=== PATIENT | female | born 1970 | race Caucasian/White ===

== ENCOUNTER 2019-10-18 16:29 | Inpatient (IN) | payer OTHER, MEDICAID, SELFPAY ==
[2019-10-18 16:29] VITALS: BP 120/74; PULSE 92; TEMP 36.5; O2SAT 95; BMI 19.3
--- NOTE | 2019-10-18 16:41 | PC.NURSE ---
EMS reports the condition of the home the patient was living was unlivable and that he would be calling DFS due to a child living in the home.
--- NOTE | 2019-10-18 17:42 | XR_ITS ---
WS: [id number] XR chest 1V portable [id number] REASON FOR EXAM: cough/congestion FINDINGS: Comparisons were made to previous exam exposed July 14, 2019. Cardiomegaly is again see n. There is an infiltrate with air bronchograms in the right lower lung. The lungs are hyper aerated as compared to earlier exam. The hilum and apices are normal. In the left lingula segment there is an alveolar infiltrate there is increased since earlier exam. XR/XR chest 1V portable [id number] IMPRESSION: Right lower lung interstitial pneumonia Hyper aerated lungs Alveolar infiltrate in the lingula segment.
[2019-10-18 17:59] VITALS: PULSE 99; RESP 18; O2SAT 94
[2019-10-18] MEDS: ipratropium-albuterol 3 mL Neb INHALATION (17:59)
[2019-10-18 18:06] VITALS: PULSE 101
[2019-10-18 18:19] LABS: Basophils # 0.1 10^3/uL (0.0-0.1); Basophils % 0.3 %; Eosinophils # 0.2 10^3/uL (0.0-0.8); Eosinophils % 1.3 %; Hematocrit 30.9 % (37.0-47.0); Hemoglobin 10.6 g/dL (11.5-15.3); Lymphocytes # 0.2 10^3/uL (0.8-4.8); Mean Corpuscular HGB Conc 34.3 g/dL (30.0-36.0); Mean Corpuscular Hemoglobin 28.3 pg (28.0-34.0); Mean Corpuscular Volume 82.6 fL (81-99); Monocytes # 0.8 10^3/uL (0.2-0.9); Monocytes % 4.3 %; Neutrophils # 16.5 10^3/uL (1.8-7.7); Nucleated Red Blood Cells % 0 %; Platelet Count 244 10^3/cmm (130-400); Red Blood Count 3.74 10^6/uL (4.1-5.3); Red Cell Distribution Width 14.6 % (12.1-15.1); White Blood Count 19.1 10^3/uL (4.0-10.0)
--- NOTE | 2019-10-18 18:28 | ED_ITS ---
HPI - General Adult General: Chief complaint: Skin/Abscess/Foreign Body Stated complaint: R BUTTOCK PAIN/WOUND Time Seen by Provider: 10/18/19 17:22 Source: family Mode of arrival: EMS Limitations: language barrier and altered mental status History of Present Illness: HPI narrative: Patient is a 48-year-old female who is currently on hospice for ESRD and lung cancer/COPD here after being brought by EMS for complaints of difficulty breathing and painful chronic buttock ulcers. Upon my examination patient does not have any family with her. There is a hospice nurse that answers as many questions as she can. Patient herself is an extremely poor historian. Hospice nurse tells me that patient has refused all of her home health care visits this week. She tells me patient does have a history of decubitus ulcers however feels these are worsening. She tells me that patient is normally on 2L O2. Hospice nurse is not sure who called an ambulance. Later during patient's visit, one of her family members arrives who states he is patient's DPOA. He states patient is a DNR. After speaking to him extensively about patient's hospice care he does want to go ahead and treat patient today. Onset (ago): unknown Location: buttocks Review of Systems General: Reports: ROS unobtainable due to mental status and other (pt is a poor historian but family states she is at her mental baseline) PENDING SALE TO [facility] ED PFSH: Medical History (Updated 10/18/19 @ 22:30 by Bernabe Amaro MD) Bedbug bite Congestive heart failure COPD (chronic obstructive pulmonary disease) End stage renal disease Hospice care Lung cancer MRSA carrier Open wound Pseudoaneurysm of right femoral artery Pulmonary emboli Sacral decubitus ulcer, stage III Smoker Type 2 diabetes mellitus Surgical History (Updated 10/18/19 @ 22:30 by Bernabe Amaro MD) H/O cardiac catheterization S/P debridement Family History (Updated 10/18/19 @ 22:50 by Bernabe Amaro MD) Denies family history of Clotting disorder Dementia Chronic kidney disease (CKD) Social History Smoking and tobacco status: current every day smoker Physical Exam Const: COMMON NORMALS: oriented x3 and alert GENERAL APPEARANCE: frail appearing NUTRITIONAL APPEARANCE: cachectic and thin ORIENTATION/CONSCIOUSNESS: Yes awake, Yes oriented to person and Yes oriented to place HENMT: COMMON NORMALS: normocephalic and head/scalp atraumatic HEAD & SCALP: normocephalic and atraumatic Resp: EFFORT & INSPECTION: Yes uses accessory muscles AUSCULTATION: wheezes scattered wheezes Cardio: COMMON NORMALS: regular rate and regular rhythm RATE: regular rate RHYTHM: regular rhythm GI: COMMON NORMALS: soft to palpation and non-tender PALPATION: Yes soft OTHER: macerated skin to lower abdomen-hospice doesn't seem to know if that is acute or chronic Extremity: COMMON NORMALS: normal to inspection Neuro: COMMON NORMALS: oriented x3 SENSORIUM/ORIENTATION: Yes alert, Yes oriented to person and Yes oriented to place Skin: OTHER: pt has two small very superficial ulcers to R buttock/sacrum; she has a large ulcer/abscess and hemorrhoid to rectum area with foul odor; pt has erythema and edema to genitals/labia Course Consultations: Consultation #1: Dr. Amaro-will admit patient Vital Signs: Vital signs: Vital Signs Temperature 97.7 F 10/18/19 16:29 Pulse Rate 103 H 10/18/19 19:27 Respiratory Rate 19 H 10/18/19 21:05 Blood Pressure 120/74 10/18/19 19:27 Pulse Oximetry 100 10/18/19 21:05 MDM - General Adult MDM Narrative: Medical decision making narrative: pts care/lab results were discussed with Dr. Vick throughout her stay; family wanting treatment for patient currently even though she is on hospice; spoke to hospitalist who will admit the patient Lab Data: Labs: Lab Results 10/18/19 10/18/19 10/18/19 Range/Units 18:12 18:12 18:12 WBC 19.1 H (4.0-10.0) 10^3/ uL RBC 3.74 L (4.1-5.3) 10^6/u L Hgb 10.6 L (11.5-15.3) g/dL Hct 30.9 L (37.0-47.0) % MCV 82.6 (81-99) fL MCH 28.3 (28.0-34.0) pg MCHC 34.3 (30.0-36.0) g/dL RDW 14.6 (12.1-15.1) % Plt Count 244 (130-400) 10^3/c mm MPV 10.0 (7.4-10.4) fL Neut % (Auto) 86.0 % Lymph % (Auto) 1.0 % [place] % (Auto) 4.3 % Eos % (Auto) 1.3 % Baso % (Auto) 0.3 % Neut # (Auto) 16.5 H (1.8-7.7) 10^3/u L Lymph # (Auto) 0.2 L (0.8-4.8) 10^3/u L [place] # (Auto) 0.8 (0.2-0.9) 10^3/u L Eos # (Auto) 0.2 (0.0-0.8) 10^3/u L Baso # (Auto) 0.1 (0.0-0.1) 10^3/u L Nucleated RBC % (a uto) 0 % Total Counted 100 (0-100) Segmented Neutroph ils 80 % Band Neutrophils 15.0 % Lymphocytes (Manua l) 3 % Monocytes (Manual) 2.0 % Absolute Monocytes 0.4 (0.1-0.6) 10^3/c mm Nucleated RBCs # 0.0 /100WBC Toxic Granulation 2+ H Toxic Vacuolation 1+ H Platelet Estimate Normal (Normal) Anisocytosis 1+ H Specimen Type Sample Site ABG pH (7.35-7.45) ABG pCO2 (35-45) mmHg ABG pO2 (80.0-100.0) mmH g ABG HCO3 (22-26) mmol/L ABG O2 Saturation ABG Base Excess (-2.0-2.0) mmol/ L Real Test A-a O2 Gradient (5-10) mmHg Hematocrit (37-47) % Hgb O2 Saturation (95-100) % Carboxyhemoglobin (0.4-20.1) %THgb Methemoglobin (0.4-1.5) % Total Hemoglobin (12-16) g/dL Ionized Calcium (1.1-1.4) mmol/L O2 Delivery Device O2 Liters/Min % Ruling Machine Feeder ID Sodium 114 L* (136-145) mmol/L Potassium 4.0 (3.5-5.1) mmol/L Chloride 73 L (98-107) mmol/L Carbon Dioxide 29 (22-29) mmol/L Anion Gap 16.0 (5-19) BUN 45 H (6-20) mg/dL Creatinine 1.6 H (0.5-0.9) mg/dL GFR Calculation 34.1 L (90-130) mL/min Glucose 122 H (65-115) mg/dL Lactate 1.8 (0.5-2.2) mmol/L Calcium 8.7 (8.5-10.5) mg/dL Magnesium (1.7-2.3) mg/dL Total Bilirubin 0.8 (0.15-1.2) mg/dL AST 45 H (0-32) U/L ALT 26 (0-33) U/L Alkaline Phosphata se 372 H (35-105) IU/L Troponin T Baselin e (0-10) ng/mL Troponin T 120 Min [place] (0-10) ng/mL Delta Troponin T (0-10) ABS# Total Protein 5.4 L (6.6-8.7) g/dL Albumin 2.0 L (3.5-5.2) g/dL Globulin 3.4 (1.3-4.6) g/dL Urine Color (Yellow) Urine Appearance (CLEAR) Urine pH (5-7) Ur Specific Gravit y (1.005-1.030) Urine Protein (Negative) Urine Glucose (UA) (Normal) Urine Ketones (Negative) Urine Blood (Negative) Urine Nitrate (Negative) Urine Bilirubin (NEGATIVE) Urine Urobilinogen (Negative) mg/dL Ur Leukocyte Angela ase (Negative) Urine RBC (0-2) /hpf Urine WBC (0-5) /hpf Ur Squamous Epith Cells (0-5) Amorphous Sediment Urine Bacteria (NONE) Influenza Type A A g (Negative) POC Influenza B Ag (Negative) 10/18/19 10/18/19 10/18/19 Range/Units 18:12 18:12 19:50 WBC (4.0-10.0) 10^3/ uL RBC (4.1-5.3) 10^6/u L Hgb (11.5-15.3) g/dL Hct (37.0-47.0) % MCV (81-99) fL MCH (28.0-34.0) pg MCHC (30.0-36.0) g/dL RDW (12.1-15.1) % Plt Count (130-400) 10^3/c mm MPV (7.4-10.4) fL Neut % (Auto) % Lymph % (Auto) % [place] % (Auto) % Eos % (Auto) % Baso % (Auto) % Neut # (Auto) (1.8-7.7) 10^3/u L Lymph # (Auto) (0.8-4.8) 10^3/u L [place] # (Auto) (0.2-0.9) 10^3/u L Eos # (Auto) (0.0-0.8) 10^3/u L Baso # (Auto) (0.0-0.1) 10^3/u L Nucleated RBC % (a uto) % Total Counted (0-100) Segmented Neutroph ils % Band Neutrophils % Lymphocytes (Manua l) % Monocytes (Manual) % Absolute Monocytes (0.1-0.6) 10^3/c mm Nucleated RBCs # /100WBC Toxic Granulation Toxic Vacuolation Platelet Estimate (Normal) Anisocytosis Specimen Type Sample Site ABG pH (7.35-7.45) ABG pCO2 (35-45) mmHg ABG pO2 (80.0-100.0) mmH g ABG HCO3 (22-26) mmol/L ABG O2 Saturation ABG Base Excess (-2.0-2.0) mmol/ L Real Test A-a O2 Gradient (5-10) mmHg Hematocrit (37-47) % Hgb O2 Saturation (95-100) % Carboxyhemoglobin (0.4-20.1) %THgb Methemoglobin (0.4-1.5) % Total Hemoglobin (12-16) g/dL Ionized Calcium (1.1-1.4) mmol/L O2 Delivery Device O2 Liters/Min % Ruling Machine Feeder ID Sodium (136-145) mmol/L Potassium (3.5-5.1) mmol/L Chloride (98-107) mmol/L Carbon Dioxide (22-29) mmol/L Anion Gap (5-19) BUN (6-20) mg/dL Creatinine (0.5-0.9) mg/dL GFR Calculation (90-130) mL/min Glucose (65-115) mg/dL Lactate (0.5-2.2) mmol/L Calcium (8.5-10.5) mg/dL Magnesium 1.6 L (1.7-2.3) mg/dL Total Bilirubin (0.15-1.2) mg/dL AST (0-32) U/L ALT (0-33) U/L Alkaline Phosphata se (35-105) IU/L Troponin T Nael e 2184 H* (0-10) ng/mL Troponin T 120 Min [place] (0-10) ng/mL Delta Troponin T (0-10) ABS# Total Protein (6.6-8.7) g/dL Albumin (3.5-5.2) g/dL Globulin (1.3-4.6) g/dL Urine Color (Yellow) Urine Appearance (CLEAR) Urine pH (5-7) Ur Specific Gravit y (1.005-1.030) Urine Protein (Negative) Urine Glucose (UA) (Normal) Urine Ketones (Negative) Urine Blood (Negative) Urine Nitrate (Negative) Urine Bilirubin (NEGATIVE) Urine Urobilinogen (Negative) mg/dL Ur Leukocyte Angela ase (Negative) Urine RBC (0-2) /hpf Urine WBC (0-5) /hpf Ur Squamous Epith Cells (0-5) Amorphous Sediment Urine Bacteria (NONE) Influenza Type A A g Negative (Negative) POC Influenza B Ag Negative (Negative) 10/18/19 10/18/19 10/18/19 Range/Units 20:12 21:32 23:02 WBC (4.0-10.0) 10^3/ uL RBC (4.1-5.3) 10^6/u L Hgb (11.5-15.3) g/dL Hct (37.0-47.0) % MCV (81-99) fL MCH (28.0-34.0) pg MCHC (30.0-36.0) g/dL RDW (12.1-15.1) % Plt Count (130-400) 10^3/c mm MPV (7.4-10.4) fL Neut % (Auto) % Lymph % (Auto) % [place] % (Auto) % Eos % (Auto) % Baso % (Auto) % Neut # (Auto) (1.8-7.7) 10^3/u L Lymph # (Auto) (0.8-4.8) 10^3/u L [place] # (Auto) (0.2-0.9) 10^3/u L Eos # (Auto) (0.0-0.8) 10^3/u L Baso # (Auto) (0.0-0.1) 10^3/u L Nucleated RBC % (a uto) % Total Counted (0-100) Segmented Neutroph ils % Band Neutrophils % Lymphocytes (Manua l) % Monocytes (Manual) % Absolute Monocytes (0.1-0.6) 10^3/c mm Nucleated RBCs # /100WBC Toxic Granulation Toxic Vacuolation Platelet Estimate (Normal) Anisocytosis Specimen Type Arterial Sample Site Brachial, left ABG pH 7.46 H (7.35-7.45) ABG pCO2 46.0 H (35-45) mmHg ABG pO2 66.0 L (80.0-100.0) mmH g ABG HCO3 32.6 H (22-26) mmol/L ABG O2 Saturation 96.1 ABG Base Excess 7.8 H (-2.0-2.0) mmol/ L Real Test Pos A-a O2 Gradient 26.5 H (5-10) mmHg Hematocrit 34.0 L (37-47) % Hgb O2 Saturation 93.9 L (95-100) % Carboxyhemoglobin 2.1 (0.4-20.1) %THgb Methemoglobin 0.1 L (0.4-1.5) % Total Hemoglobin 11.1 L (12-16) g/dL Ionized Calcium 1.1 (1.1-1.4) mmol/L O2 Delivery Device Nc O2 Liters/Min 2.0 % Ruling Machine Feeder ID [email or web address] Sodium 114.0 L (136-145) mmol/L Potassium 3.5 (3.5-5.1) mmol/L Chloride (98-107) mmol/L Carbon Dioxide (22-29) mmol/L Anion Gap (5-19) BUN (6-20) mg/dL Creatinine (0.5-0.9) mg/dL GFR Calculation (90-130) mL/min Glucose 108.0 (65-115) mg/dL Lactate (0.5-2.2) mmol/L Calcium (8.5-10.5) mg/dL Magnesium (1.7-2.3) mg/dL Total Bilirubin (0.15-1.2) mg/dL AST (0-32) U/L ALT (0-33) U/L Alkaline Phosphata se (35-105) IU/L Troponin T Baselin e (0-10) ng/mL Troponin T 120 Min [place] 2258 H (0-10) ng/mL Delta Troponin T 74 H* (0-10) ABS# Total Protein (6.6-8.7) g/dL Albumin (3.5-5.2) g/dL Globulin (1.3-4.6) g/dL Urine Color Yellow (Yellow) Urine Appearance Sl hazy (CLEAR) Urine pH 5 (5-7) Ur Specific Gravit y 1.015 (1.005-1.030) Urine Protein 3+ H (Negative) Urine Glucose (UA) 1+ (Normal) Urine Ketones Negative (Negative) Urine Blood 2+ H (Negative) Urine Nitrate Negative (Negative) Urine Bilirubin Neg (NEGATIVE) Urine Urobilinogen Norm (Negative) mg/dL Ur Leukocyte Angela ase Negative (Negative) Urine RBC 0-4 H (0-2) /hpf Urine WBC None (0-5) /hpf Ur Squamous Epith Cells 5-10 H (0-5) Amorphous Sediment 2+ Urine Bacteria 1+ H (NONE) Influenza Type A A g (Negative) POC Influenza B Ag (Negative) Imaging Data^: CT Abd/Pel: Radiologist's impression: [place] [address] CT Scan Report Signed Patient: Brielle Love Unit #: [id number] : 1970 Age/Sex: 48 / F ADM Date: 10/18/19 Loc: ER Room/Bed: Attending Dr: Ordering Provider/Ordering MD: Rosalinda Flores Date of Service: 10/18/19 Procedure(s): CT kidney stone 31851 Accession Number(s): [id number] Report Number: [id number] PROCEDURE INFORMATION: Exam: CT Abdomen And Pelvis Without Contrast Exam date and time: 10/18/2019 8:05 PM Age: 48 years old Clinical indication: Other: Decub/rectal ulcer, swollen/erythematous genitals; Additional info: Decub/rectal ulcer; Swollen/erythematous genitals TECHNIQUE: Imaging protocol: Computed tomography of the abdomen and pelvis without contrast. Total DLP: 1353.21 mGy-cm Radiation optimization: All CT scans at this facility use at least one of these dose optimization techniques: automated exposure control; mA and/or kV adjustment per patient size (includes targeted exams where dose is matched to clinical indication); or iterative reconstruction. COMPARISON: No relevant prior studies available. FINDINGS: Pleural space: Bilateral small pleural effusions. Cardiomegaly. Coronary artery disease. Small pericardial effusion. Liver: Liver grossly unremarkable. Gallbladder and bile ducts: Unremarkable. No visible calcified stones. No visible ductal dilation. Pancreas: Pancreas grossly unremarkable. No visible pancreatic ductal ectasia. Spleen: Spleen with calcified granuloma. No splenomegaly. Adrenals: No visible adrenal mass or nodule. Kidneys and ureters: Kidneys unremarkable. No hydronephrosis or perinephric fluid. Renal arterial sclerosis. Stomach and bowel: Limited assessment of bowel reveals nonobstructive bowel pattern. Appendix: No evidence of appendicitis. Intraperitoneal space: Small volume intraperitoneal ascites. No visible pneumoperitoneum. Vasculature: The abdominal aorta appears nonaneurysmal. Moderate arterial sclerotic disease. Lymph nodes: Unremarkable. No enlarged lymph nodes. Bladder: Distended urinary bladder. Bladder measures 13.3 cm x 9.7 cm by 10.7 cm. Reproductive: Unremarkable as visualized. Bones/joints: No visible osteolytic or osteoblastic destructive process within the field of view. Old right rib fractures. Bilateral spondylolysis L5/S1 without significant spondylolisthesis. Degenerative disease. Soft tissues: Diffuse marked anasarca. Cachexia. Within the field of view no definite visible evidence of seroma, hematoma, or organized abscess. Please note that without intravenous contrast detail assessment is limited. Perianal loculated fluid collection with emphysema consistent with an abscess. Dimensions are approximately 6.8 cm by 3.6 cm by 4.7 cm. Second potential anterior perineal abscess dimensions estimated [address]/CT kidney stone [id number] IMPRESSION: 1. Perianal loculated fluid collection with emphysema consistent with an abscess. Dimensions are approximately 6.8 cm by 3.6 cm by 4.7 cm. Second potential anterior perineal abscess dimensions estimated 20 mm in diameter. 2. Bilateral small pleural effusions. 3. Small pericardial effusion. 4. Small volume intraperitoneal ascites. 5. Diffuse marked anasarca. Cachexia. 6. Distended urinary bladder. 7. Other non emergent, non urgent, chronic, and age related findings discussed in text. Radiation Dose CTDIVOL = (mGy): DLP = 1353.21 (mGy-cm) Dictated By: Humphrey Haney Signed By: Humphrey Haney Signed Date/Time: 10/18/192153 DD/ 51 Discharge Plan Discharge Patient Disposition: Admitted As Inpatient Admit Provider: Bernabe Amaro Clinical Impression: Abscess, perianal, Acute non-ST elevation myocardial infarction (NSTEMI), End stage renal disease, Lung cancer, Acute hyponatremia Condition: Stable Referrals: Robert Watson DO [Family Provider] - Bj Rios DO [Primary Care Provider] - Coding Level of Care Code ED Bench Examiner for Chg Fwd Exam Detailed
[2019-10-18 18:34] LABS: Alanine Aminotransferase 26 U/L (0-33); Alkaline Phosphatase 372 IU/L (35-105); Aspartate Amino Transferase 45 U/L (0-32); Blood Urea Nitrogen 45 mg/dL (6-20); Calcium 8.7 mg/dL (8.5-10.5); Carbon Dioxide 29 mmol/L (22-29); Chloride 73 mmol/L (98-107); Globulin 3.4 g/dL (1.3-4.6); Glomerular Filtration Rate 34.1 mL/min (90-130); Glucose 122 mg/dL (65-115); Total Bilirubin 0.8 mg/dL (0.15-1.2); Total Protein 5.4 g/dL (6.6-8.7)
[2019-10-18 18:35] LABS: Lactate (Lactic Acid level) 1.8 mmol/L (0.5-2.2)
--- NOTE | 2019-10-18 18:46 | PC.PHAR ---
UNABLE TO GET ANY MEDICATION INFORMATION FROM THE PATIENT.
[2019-10-18 18:47] LABS: Platelet Estimate Normal (Normal); Total Cells Counted 100 (0-100); Toxic Granulation 2+
[2019-10-18 18:48] LABS: Toxic Vacuolation 1+
[2019-10-18 18:50] LABS: Absolute Segmented Neutrophil 15.2 10/cmm (1.6-7.1); Band Neutrophils Absolute 2.9 10^3/cmm (0.0-1.2); Lymphocytes 3 %; Monocytes Absolute 0.4 10^3/cmm (0.1-0.6); Segmented Neutrophils 80 %
[2019-10-18 18:51] LABS: Anisocytosis 1+
[2019-10-18 18:54] LABS: Sodium 114 mmol/L (136-145)
--- NOTE | 2019-10-18 19:26 | CTR_ITS ---
PROCEDURE INFORMATION: Exam: CT Abdomen And Pelvis Without Contrast Exam date and time: 10/18/2019 8:05 PM Age: 48 years old Clinical indication: Other: Decub/rectal ulcer, swollen/erythematous genitals; Additional info: Decub/rectal ulcer; Swollen/erythematous genitals TECHNIQUE: Imaging protocol: Computed tomography of the abdomen and pelvis without contrast. Total DLP: 1353.21 mGy-cm Radiation optimization: All CT scans at this facility use at least one of these dose optimization techniques: automated exposure control; mA and/or kV adjustment per patient size (includes targeted exams where dose is matched to clinical indication); or iterative reconstruction. COMPARISON: No relevant prior studies available. FINDINGS: Pleural space: Bilateral small pleural effusions. Cardiomegaly. Coronary artery disease. Small pericardial effusion. Liver: Liver grossly unremarkable. Gallbladder and bile ducts: Unremarkable. No visible calcified stones. No visible ductal dilation. Pancreas: Pancreas grossly unremarkable. No visible pancreatic ductal ectasia. Spleen: Spleen with calcified granuloma. No splenomegaly. Adrenals: No visible adrenal mass or nodule. Kidneys and ureters: Kidneys unremarkable. No hydronephrosis or perinephric fluid. Renal arterial sclerosis. Stomach and bowel: Limited assessment of bowel reveals nonobstructive bowel pattern. Appendix: No evidence of appendicitis. Intraperitoneal space: Small volume intraperitoneal ascites. No visible pneumoperitoneum. Vasculature: The abdominal aorta appears nonaneurysmal. Moderate arterial sclerotic disease. Lymph nodes: Unremarkable. No enlarged lymph nodes. Bladder: Distended urinary bladder. Bladder measures 13.3 cm x 9.7 cm by 10.7 cm. Reproductive: Unremarkable as visualized. Bones/joints: No visible osteolytic or osteoblastic destructive process within the field of view. Old right rib fractures. Bilateral spondylolysis L5/S1 without significant spondylolisthesis. Degenerative disease. Soft tissues: Diffuse marked anasarca. Cachexia. Within the field of view no definite visible evidence of seroma, hematoma, or organized abscess. Please note that without intravenous contrast detail assessment is limited. Perianal loculated fluid collection with emphysema consistent with an abscess. Dimensions are approximately 6.8 cm by 3.6 cm by 4.7 cm. Second potential anterior perineal abscess dimensions estimated [address]/CT kidney stone [id number] IMPRESSION: 1. Perianal loculated fluid collection with emphysema consistent with an abscess. Dimensions are approximately 6.8 cm by 3.6 cm by 4.7 cm. Second potential anterior perineal abscess dimensions estimated 20 mm in diameter. 2. Bilateral small pleural effusions. 3. Small pericardial effusion. 4. Small volume intraperitoneal ascites. 5. Diffuse marked anasarca. Cachexia. 6. Distended urinary bladder. 7. Other non emergent, non urgent, chronic, and age related findings discussed in text. Radiation Dose CTDIVOL = (mGy): DLP = 1353.21 (mGy-cm)
[2019-10-18 19:27] VITALS: BP 120/74; PULSE 103; RESP 18; O2SAT 99
--- NOTE | 2019-10-18 19:36 | ECG_ITS ---
Measurements Intervals [place] Rate: 98 P: 75 MD: 132 QRS: 100 QRSD: 113 T: 40 QT: 363 QTc: 464 SINUS RHYTHM BORDERLINE RIGHT AXIS DEVIATION [QRS AXIS > 90] INFERIOR MYOCARDIAL INFARCTION , PROBABLY OLD WITH POSTERIOR EXTENSION [40+ ms Q WAVE AND/OR ST/T ABNORMALITY IN II/aVFPROMINE ANTEROLATERAL MYOCARDIAL INFARCTION , OF INDETERMINATE AGE [40+ ms Q WAVE IN I/ I/aVL/V3-V6] Compared to ECG 07/28/2019 22:58:01 Myocardial infarct finding now present Intraventricular conduction delay no longer present T-wave abnormality no longer present Electronically Signed On 10-19-2019 16:54:57 [employer]PARATUS ENGINEERING TECHNOLOGIST by Michael Rosario M.D. [email or web address]
[2019-10-18 20:00] LABS: Magnesium 1.6 mg/dL (1.7-2.3)
[2019-10-18 20:03] LABS: Troponin(5th) Baseline 2184 ng/mL (0-10)
[2019-10-18 20:23] LABS: ABG PH Result 7.46 (7.35-7.45); Alveolar-Arterial Oxygen Gradi 26.5 mmHg (5-10); Base Excess ABG 7.8 mmol/L (-2.0-2.0); Blood Gas Allen Test Pos; Blood Gas Sample Site Brachial, left; Blood Gas Sample Type Arterial; Carboxyhemoglobin 2.1 %THgb (0.4-20.1); HCO3 ABG 32.6 mmol/L (22-26); HGB O2 Sat 93.9 % (95-100); Ionized Calcium Level - ABG 1.1 mmol/L (1.1-1.4); Methemoglobin 0.1 % (0.4-1.5); Oxygen Device NC; Oxygen Saturation ABG 96.1; Potassium Level - ABG 3.5 mmol/L (3.5-5.0); Total Hemoglobin 11.1 g/dL (12-16)
[2019-10-18 20:26] LABS: Influenza A by IFA Negative (Negative); Influenza B by IFA Negative (Negative)
[2019-10-18] MEDS: sodium chloride 0.9% 1,000 ML 75 ML IV (20:46)
[2019-10-18] MEDS: piperacillin-tazobactam 2.25 GM in sodium chloride 0.9% (plus) 50 ML IV (20:48)
[2019-10-18] MEDS: vancomycin 750 MG in sodium chloride 0.9% 250 ML 50 MG IV (20:51)
[2019-10-18 21:05] VITALS: RESP 19; O2SAT 100
--- NOTE | 2019-10-18 21:36 | ECG_ITS ---
Measurements Intervals [place] Rate: 96 P: 82 VT: 131 QRS: 96 QRSD: 125 T: 0 QT: 392 QTc: 497 SINUS RHYTHM BORDERLINE RIGHT AXIS DEVIATION [QRS AXIS > 90] INFERIOR MYOCARDIAL INFARCTION , OF INDETERMINATE AGE WITH POSTERIOR EXTENSION [40+ ms Q WAVE AND/OR ST/T ABNORMALITY IN II/aV ANTEROLATERAL MYOCARDIAL INFARCTION , OF INDETERMINATE AGE [40+ ms Q WAVE IN I/aVL/V3-V6] Compared to ECG 07/28/2019 22:58:01 Myocardial infarct finding now present Intraventricular conduction delay no longer present T-wave abnormality no longer present Electronically Signed On 10-19-2019 17:01:06 FEED CRUSHER by Michael Rosario M.D. [email or web address]
[2019-10-18 22:04] LABS: Troponin 5 2HR 2258 ng/mL (0-10); Troponin 5 2HR Delta 74 ABS# (0-10)
--- NOTE | 2019-10-18 22:24 | P.HP_ITS ---
Providers/Chief Complaint Primary Care Provider: Bj Rios DO Chief Complaint: R BUTTOCK PAIN/WOUND History of Present Illness Brielle Love is a 48 year old female with a complex past medical history was brought in by her family members for shortness of breath, extreme lethargy and not doing well. Hospice nurse accompanied the patient currently patient is on home hospice service, she is not getting dialyzed, she is bedbound, she is bedbound, has poor p.o. intake, her sacral ulcers are getting worse. Family is not able to take care of her and brought her here for further evaluation. Diagnostics in ER showed sepsis secondary to perianal abscess evident on CT scan with remarkable dimensions, he has had a leukocytosis, tachycardia. She has been given renal dose of vancomycin and Zosyn and 1 L of normal saline fluid. Patient kept her eyes closed during my interview but she said she is extremely lethargic and tired, has no energy and she was struggling to breathe at home. Review of Systems Const: Reports: chills, body aches, change in appetite, change in weight, fatigue, malaise and daytime sleepiness Eyes: Denies: change in vision ENMT: Denies: throat pain Card: Reports: edema and shortness of breath when lying down; Denies: chest pain or palpitations Resp: Reports: shortness of breath and non-productive cough GI: Reports: abdominal pain; Denies: nausea or vomiting : Denies: flank pain or difficulty urinating Musc: Reports: redness, limited range of motion, muscle weakness, decrease in muscle mass and deformity Skin/Breast: Reports: other (Unkempt appearance, sacral ulcer stage III, perianal abscess, onychomycosis,) Neuro: Reports: confusion and restless legs; Denies: slurred speech Psych: Reports: depression Endo: Reports: tired all the time and change in body appearance Timothy/Lymph: Reports: easy bruising All/Imm: Denies: hives Medications/Allergies Allergies Allergy/AdvReac Type Severity Reaction Status Date / Time No Known Allergies Allergy Unverified 09/07/19 10:36 PFSH Acute PFSH: Medical History (Updated 10/18/19 @ 22:30 by Bernabe Amaro MD) Bedbug bite Congestive heart failure COPD (chronic obstructive pulmonary disease) End stage renal disease Hospice care Lung cancer MRSA carrier Open wound Pseudoaneurysm of right femoral artery Pulmonary emboli Sacral decubitus ulcer, stage III Smoker Type 2 diabetes mellitus Surgical History (Updated 10/18/19 @ 22:30 by Bernabe Amaro MD) H/O cardiac catheterization S/P debridement Family History (Updated 10/18/19 @ 22:50 by Bernabe Amaro MD) Denies family history of Clotting disorder Dementia Chronic kidney disease (CKD) Social History Smoking and tobacco status: current every day smoker Vitals/I&O/Wt Last Vital Signs Temp 97.7 F 10/18/19 16:29 Pulse 103 H 10/18/19 19:27 Resp 19 H 10/18/19 21:05 BP 120/74 10/18/19 19:27 Pulse Ox 100 10/18/19 21:05 Weight last 48 hrs Weight 54.431 kg Physical Exam Narrative: EXAM NARRATIVE: Frail, malnourished, unkempt appearance Appearance more than stated age Patient kept her eyes closed during the interview however she open her eyes on command, PERRLA Extremely dehydrated skin findings Multiple skin excoriation Sacral ulcer, perianal abscess Bilateral lower extremity hyperemia without purulent drainage, 1+ dorsalis pedis pulses bilaterally Variable S1-S2, positive JVD, however clinically she looks dehydrated Abdomen soft, nontender right groin area has well-healed scar Neurologically she is able to follow commands, awake alert Diminished breath sounds bilaterally no adventitious sounds appreciated Data : 10/18/19 18:12 10/18/19 18:12 Micro: Microbiology 10/18/19 18:13 Blood Culture - Preliminary Blood SPECIMEN COLLECTED 10/18/19 18:12 Blood Culture - Preliminary Blood SPECIMEN COLLECTED A&P Assessment and plan (1) Abscess, perianal: Status: Acute Code(s): K61.0 - Anal abscess (2) Acute hyponatremia: Status: Acute Code(s): E87.1 - Hypo-osmolality and hyponatremia Additional A&P Information Sepsis secondary to worsening of sacral wound with perianal abscess Patient is on home hospice She has received renally dosed vancomycin and Zosyn in ER and 1 L normal saline I highly suspect that she is a candidate for debridement for the abscess, however for comfort measures might consult radiology for take it do catheter drainage Jael is a cousin who was in the patient's room: I explained to him the treatment of abscess which would need drainage along antibiotics as antibiotics alone would not help her situation, he stated that he does not want any surgical intervention antibiotics IV fluids with opt for comfort measures, patient opens her eyes to verbal command, she understood what her cousin has decided, she seems well receptive to this decision Will put her on comfort measures Hyponatremia Last admission her hyponatremia was secondary to anasarca, clinically she does not look wet but CT scan is consistent with anasarca, her intravascular congestion is most likely secondary to end-stage renal disease No active neurological signs at however she is very lethargic and tired High troponin, EKG not showing any signs of ischemia, this is most likely secondary to end-stage renal disease Previous history of right groin cellulitis she was growing strep pyogenes and MRSA She is on comfort measures now No DVT prophylaxis No need of fluids or antibiotics Attestations Medical Necessity Statement*: Will admit as inpatient hospice Time Spent in Patient Care: 60 Coding Level of Care Code 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
[2019-10-19] VITALS (10 sets, daily range): BP systolic 102–120; BP diastolic 69–84; PULSE 87–102; RESP 14–22; TEMP 36.4–37; O2SAT 92–100
[2019-10-19 00:08] LABS: Urine Appearance SL Hazy (CLEAR); Urine Color Yellow (Yellow); pH Urine 5 (5-7)
[2019-10-19 00:09] LABS: Add Urine Microscopic? YES; Bilirubin Urine Neg (NEGATIVE); Blood Urine 2+ (Negative); Glucose Urine UA 1+ (Normal); Ketones Urine Negative (Negative); Leukocyte Esterase Urine Negative (Negative); Nitrate Urine Negative (Negative); Protein Urine 3+ (Negative); Specific Gravity, Urine 1.015 (1.005-1.030); Urobilinogen Urine Norm (Negative)
[2019-10-19 00:11] LABS: Amorphous Sediment Urine 2+; Bacteria Urine 1+; RBC Urine 0-4 /hpf (0-2)
[2019-10-19 00:12] LABS: Add Urine Culture? No
[2019-10-19] MEDS: morphine 4 mg/mL SDV 1 mL 2 MG IVP ×12 (03:13→23:44)
--- NOTE | 2019-10-19 14:48 | PM.PN ---
Subjective Subjective: Interval history: Overnight labs, H&P reviewed. [facility]. Patient continues to do poorly, at time of exam, noted to be grunting and gurgling, poorly responsive, intermitetnly awake but confused, taking off clothes, disoriented, agitated Medications: Reviewed: Yes Vitals/I&O/Wt Last Vital Signs Temp 98.6 F 10/19/19 11:08 Pulse 102 H 10/19/19 11:08 Resp 16 10/19/19 11:08 BP 104/71 10/19/19 11:08 Pulse Ox 93 10/19/19 11:08 10/18/19 10/19/19 10/19/19 22:59 06:59 14:59 Intake Total 1300 / 1300 Output Total 1250 / 1250 Balance 50 / 50 Weight last 48 hrs Weight 54.431 kg Physical Exam Narrative: EXAM NARRATIVE: GEN: as above in HPI. Confused, disoriened, intemittently awake, grunting and groaning, appears uncomfortable. Chronically sick, malnourished, cachexia and muscle wasting+. LE cellulitis more prominent on left leg, may have underlying DVT given past history and limb apperance Wahl in place Urinary Catheter Management^: Wahl: Cath Placed During This Visit: yes Urethral Indwelling: Yes Reason for Continuing Indwelling Catheter: Hospice/Comfort/Palliative Care Urinary Catheter Date of Insertion: 10/18/19 Urinary Catheter Time of Insertion: 23:14 Data : 10/18/19 18:12 10/18/19 18:12 Micro: Microbiology 10/18/19 18:13 Blood Culture - Preliminary Blood SPECIMEN COLLECTED 10/18/19 18:12 Blood Culture - Preliminary Blood SPECIMEN COLLECTED A&P Assessment and plan (1) Hospice care: Status: Acute Code(s): Z51.5 - Encounter for palliative care (2) End of life care: Status: Acute Code(s): Z51.5 - Encounter for palliative care (3) Acute hyponatremia: Status: Acute Code(s): E87.1 - Hypo-osmolality and hyponatremia (4) Lung cancer: Status: Acute Code(s): C34.90 - Malignant neoplasm of unspecified part of unspecified bronchus or lung (5) End stage renal disease: Status: Acute Code(s): N18.6 - End stage renal disease (6) Acute non-ST elevation myocardial infarction (NSTEMI): Status: Acute Code(s): I21.4 - Non-ST elevation (NSTEMI) myocardial infarction (7) Abscess, perianal: Status: Acute Code(s): K61.0 - Anal abscess (8) Sepsis: present on admission, meets criteria with leukocytosis, tachypnea, tachycardia and source of infection Status: Acute Code(s): A41.9 - Sepsis, unspecified organism Additional A&P Information Chronically ill patient on home hospice, now returns with multiple medical issues including sepsis, cellulitis, perianal abscess, ACS, severe hyponatremia, dehydration and cachexia, now on comfort care measures only. 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
[2019-10-20] VITALS (9 sets, daily range): RESP 12–22
[2019-10-20] MEDS: morphine 4 mg/mL SDV 1 mL 2 MG IVP ×18 (01:02→23:05)
--- NOTE | 2019-10-20 16:26 | PM.PN ---
Subjective Subjective: Interval history: sleeping comfortably at time of exam Medications: Reviewed: Yes Vitals/I&O/Wt Last Vital Signs Temp 98.6 F 10/19/19 11:08 Pulse 102 H 10/19/19 11:08 Resp 14 10/20/19 15:01 BP 109/73 10/19/19 16:00 Pulse Ox 93 10/19/19 11:08 10/20/19 10/20/19 10/20/19 06:59 14:59 22:59 Output Total 250 / 850 Balance -250 / -850 Weight last 48 hrs Weight 54.431 kg Physical Exam Narrative: EXAM NARRATIVE: not examined for comfort Urinary Catheter Management^: Wahl: Cath Placed During This Visit: yes Urethral Indwelling: Yes Reason for Continuing Indwelling Catheter: Hospice/Comfort/Palliative Care Urinary Catheter Date of Insertion: 10/18/19 Urinary Catheter Time of Insertion: 23:14 Data : 10/18/19 18:12 10/18/19 18:12 Micro: Microbiology 10/18/19 18:13 Blood Culture - Preliminary Blood NEGATIVE TO DATE 10/18/19 18:12 Blood Culture - Preliminary Blood NEGATIVE TO DATE A&P Assessment and plan (1) Hospice care: Status: Acute Code(s): Z51.5 - Encounter for palliative care (2) End of life care: Status: Acute Code(s): Z51.5 - Encounter for palliative care (3) Acute hyponatremia: Status: Acute Code(s): E87.1 - Hypo-osmolality and hyponatremia (4) Lung cancer: Status: Acute Code(s): C34.90 - Malignant neoplasm of unspecified part of unspecified bronchus or lung (5) End stage renal disease: Status: Acute Code(s): N18.6 - End stage renal disease (6) Acute non-ST elevation myocardial infarction (NSTEMI): Status: Acute Code(s): I21.4 - Non-ST elevation (NSTEMI) myocardial infarction (7) Abscess, perianal: Status: Acute Code(s): K61.0 - Anal abscess (8) Sepsis: present on admission, meets criteria with leukocytosis, tachypnea, tachycardia and source of infection Status: Acute Code(s): A41.9 - Sepsis, unspecified organism Additional A&P Information Chronically ill patient on home hospice, now returns with multiple medical issues including sepsis, cellulitis, perianal abscess, ACS, severe hyponatremia, dehydration and cachexia, now on comfort care measures only. 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
[2019-10-21] MEDS: morphine 4 mg/mL SDV 1 mL 2 MG IVP ×10 (00:49→13:45)
[2019-10-21] MEDS: LORazepam 2 mg/mL INJ 1 mL 0.5 MG IVP ×4 (01:00→09:27)
[2019-10-21 08:25] VITALS: RESP 16
[2019-10-21 09:30] VITALS: RESP 18
[2019-10-21 11:30] VITALS: RESP 18
[2019-10-21 12:29] VITALS: RESP 16
--- NOTE | 2019-10-21 13:20 | P.PN_ITS ---
Subjective Subjective: Interval history: sleeping comfortably. No acute distress. Calm Medications: Reviewed: Yes Vitals/I&O/Wt Last Vital Signs Temp 98.6 F 10/19/19 11:08 Pulse 102 H 10/19/19 11:08 Resp 16 10/21/19 12:29 BP 109/73 10/19/19 16:00 Pulse Ox 93 10/19/19 11:08 10/20/19 10/21/19 10/21/19 22:59 06:59 14:59 Output Total 400 / 400 200 / 600 Balance -400 / -400 -200 / -600 Physical Exam Narrative: EXAM NARRATIVE: not examined for comfort Urinary Catheter Management^: Wahl: Cath Placed During This Visit: yes Urethral Indwelling: Yes Reason for Continuing Indwelling Catheter: Hospice/Comfort/Palliative Care Urinary Catheter Date of Insertion: 10/18/19 Urinary Catheter Time of Insertion: 23:14 Data : 10/18/19 18:12 10/18/19 18:12 A&P Assessment and plan (1) Hospice care: Status: Acute Code(s): Z51.5 - Encounter for palliative care (2) End of life care: Status: Acute Code(s): Z51.5 - Encounter for palliative care (3) Acute hyponatremia: Status: Acute Code(s): E87.1 - Hypo-osmolality and hyponatremia (4) Lung cancer: Status: Acute Code(s): C34.90 - Malignant neoplasm of unspecified part of unspecified bronchus or lung (5) End stage renal disease: Status: Acute Code(s): N18.6 - End stage renal disease (6) Acute non-ST elevation myocardial infarction (NSTEMI): Status: Acute Code(s): I21.4 - Non-ST elevation (NSTEMI) myocardial infarction (7) Abscess, perianal: Status: Acute Code(s): K61.0 - Anal abscess (8) Sepsis: present on admission, meets criteria with leukocytosis, tachypnea, tachycardia and source of infection Status: Acute Code(s): A41.9 - Sepsis, unspecified organism Additional A&P Information Chronically ill patient on home hospice, now returns with multiple medical issues including sepsis, cellulitis, perianal abscess, ACS, severe hyponatremia, dehydration and cachexia, now on comfort care measures only. 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
[2019-10-21 13:45] VITALS: RESP 8
--- NOTE | 2019-10-21 14:00 | PC.NURSE ---
Following morphine administration patient stopped breathing. Patient assessed by two RNs, no apical pulse or respiration noted. Time of 1354. Physician notified.
--- NOTE | 2019-10-21 14:04 | PM.DDS ---
Discharge Providers DDS Date of Admission: 10/19/19 00:30 Date Summary Completed: 10/21/19 Attending Provider at Admission: Bernabe Amaro MD Time of : 13:53 Attending Provider at Discharge: Emily Pedraza MD Primary Care Provider: DO JAMARI Tanner Diagnoses Hospital Diagnoses (1) Hospice care: (2) End of life care: (3) Acute hyponatremia: (4) Lung cancer: (5) End stage renal disease: (6) Acute non-ST elevation myocardial infarction (NSTEMI): (7) Abscess, perianal: (8) Sepsis: Reason for Visit Reason for Visit: Reason For Visit: R BUTTOCK PAIN/WOUND Summary Date and Time of : Date of : 10/21/19 Time of : 13:53 Summary: Summary: Chronically ill patient on home hospice, returned with multiple medical issues including sepsis, cellulitis, perianal abscess, ACS, severe hyponatremia, dehydration and cachexia, remained on comfort care measures only until demise Discharge Plan Discharge Patient Disposition: Condition: Stable Prescriptions: No Action albuterol sulfate 2.5 mg /3 mL (0.083 %) solution for nebulization 2.5 mg INHALATION Q6H Qty: 180 RF: 0 Referrals: Robert Watson DO [Family Provider] - Bj Rios DO [Primary Care Provider] - Probable Cause of Probable cause of : Sepsis DS Attestations Time Spent in /Discharge Care*: less than 30 min Quality - AMI: AMI present?: No Quality - Stroke: CVA present?: No Quality - VTE: VTE present?: No Coding Level of Care Code 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
--- NOTE | 2019-10-21 15:26 | PC.NURSE ---
Spoke with Dallin Orozco who is listed as the patients son on the patients contact list. Mr. Orozco was notified that patient had passed. Condolenses expressed.
--- NOTE | 2019-10-21 17:41 | PC.NURSE ---
PT PASSED AT 1354 WITH THIS NURSE AND JESSICA BRADY AT BEDSIDE. JESSICA BRADY AND DENISE CHARGE NURSE, VERIFIED TIME OF . DR HIGUERA NOTIFIED AND QUILL STRIPPER NOTIFIED OF TIME OF . SISTER WAS NOTIFIED OF PT PASSING, HOSPICE CAME AT APPROXIMATELY 1430 and she notified cousins that marrow was staying with.
--- NOTE | 2019-11-07 11:48 | PC.SOCIAL ---
Was contacted last wednesday by [facility] regarding a certificate being signed that evening by Dr Pedraza since her body needs to be sent for science. This was the last day they could accept. The last name on the certificate is Belen not Marrow as we have in our system since 2016 and first name is Ivy not Brielle as we have here. Discussed with Dr Pedraza and legally she is not willing to sign this certificate under a different name. Call placed to [place] with [facility] Wednesday night and he was a little upset but ended up understanding the legal ramifications behind this. Today call placed to Dept of vital records and directed to circuit court. hospital clerk mentioned not knowing anything about this process. call then placed to [facility] dept spoke with Emelyn Juares there and she tried to troubleshoot this case as well. Decided to discuss with Nikko Loving the Obstetrical Anesthesiologist. Between our discussions we decided the only way the provider would sign it if it was listed under the name we know her to be over the last 4 years. Updated [facility] and they indicate they are taking this out of our hands and will call the Obstetrical Anesthesiologist. Explained again that if it comes back to Dr Pedraza the only way she would sign is if there was a court document indicating this person is indeed Belen or if name is as we have in our system.
== END 2019-10-21 20:30 | disposition expired | DRG 871 ==
LOC: ER 22:18 → MEDSURG 10-19 00:35
PROVIDERS: Admitting Provider Internal Medicine; Emergency Provider Physician Assistant; Family Provider Family Medicine; PCP Family Medicine; Visit Provider Student in an Organized Health Care Education/Training Program
DX: A41.9 Sepsis, unspecified organism (principal); L89.153 Pressure ulcer of sacral region, stage 3; N18.6 End stage renal disease; I21.4 Non-ST elevation (NSTEMI) myocardial infarction; E87.1 Hypo-osmolality and hyponatremia; K61.0 Anal abscess; C34.90 Malignant neoplasm of unspecified part of unspecified bronchus or lung; R64 Cachexia; Z86.711 Personal history of pulmonary embolism; J44.9 Chronic obstructive pulmonary disease, unspecified; Z51.5 Encounter for palliative care; I50.9 Heart failure, unspecified; Z74.01 Bed confinement status; E86.0 Dehydration; Z66 Do not resuscitate
CPT/HCPCS: 12345; 36415; 36600; 51702; 71045; 74176; 80051; 80053; 81001; 82810; 83605; 83735; 83986; 84484; 85007; 85025; 87040; 87804; 93005; 94640; 96375; 99283; J2060; J2270; J2543; J3370; J7030; J7050